=== PATIENT | male | born 1995 | race American Indian/Alaskan Native ===

== ENCOUNTER 2018-05-19 11:11 | Emergency (ER) | payer BC ==
[2018-05-19] MEDS ORDERED: NORCO 7.5/325 PO ONE (12:14)
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
[2018-05-19 12:33] VITALS: BP 120/70
== END 2018-05-19 12:32 | disposition home or self-care (01) ==
LOC: ED 11:11
DX: H66.91 Otitis media, unspecified, right ear (principal); M54.5 Low back pain
CPT/HCPCS: 99282